=== PATIENT | male | born 1995 | race Caucasian/White ===

== ENCOUNTER 2018-04-18 18:30 | Emergency (ER) | payer MEDICAID, SELFPAY ==
[2018-04-18 18:42] VITALS: BP 157/97; PULSE 96; RESP 16; TEMP 37.5; O2SAT 99
[2018-04-18] MEDS: Albuterol HFA 8 GM 60 PUFF INH IH (20:08)
[2018-04-18] MEDS: Inhaler, Assist Device 1 EACH MC (20:09)
--- NOTE | 2018-04-18 20:22 | W.ED.GENAD ---
Discharge Plan Disposition Patient Disposition: HOME Condition: Stable Discharge Details Chief Complaint: GenMedical Clinical Impression: Infection, respiratory tract Primary Care Provider: Emanuel Reyes ED Provider: Dejuan Ferrell Home Meds and New Rx's Prescriptions: New benzonatate 200 mg capsule 200 mg PO TID PRN (Reason: cough) Qty: 30 RF: 0 Discharge Instructions Instructions: Acute Bronchitis (ED), Cold Symptoms (ED) Additional Instructions: Take medication as prescribed and if not improving over the next week please follow-up with your primary care provider for reassessment. Please return to the emergency department for any significant new or worsening symptoms. Please use provided inhaler 1-2 puffs every 4 hours as needed for chest tightness Referrals: Emanuel Reyes MD [Primary Care Provider] - (As needed for reassessment) Discharge Data Discharge Date/Time-TO BE ENTERED AT DEPARTURE: 04/18/18 21:15 Medical Decision Making Patient presenting the emergency department for chief complaint of sore throat, cough, nasal congestion for the past 4 weeks. Patient states that this is just not gotten any better and that he has had intermittent fever and chills with it. Physical exam shows clear lung barrios, tonsillary erythema with exudates and slight hypertrophy, some anterior cervical lymphadenopathy otherwise unremarkable exam. Patient does state some call sensation of tightness in his throat but also notes that occasionally when he is laughing he starts having coughing episodes and some shortness of breath. Patient denies any continuous cigarette smoking states he may smoke 1 pack a year but occasionally does marijuana more often. 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 Given tonsillary swelling lymphadenopathy hypertrophy and exudates do plan on doing rapid strep test given patient stating his biggest concern is his throat more than his cough but also consideration is post viral symptoms, bronchitis, atypical respiratory infection. Pending rapid strep test patient was given albuterol inhaler to see if that helps. Rapid strep test was negative. Patient reassessed after inhaler use and shows more movement through lung barrios and patient stating that this seemed to improve symptoms. I feel the patient has viral illness and possible secondary cough variant asthma. Patient was encouraged to use inhaler as needed and was prescribed Tessalon Perles otherwise informed that he should follow-up with his primary care provider for reassessment and further workup if he does not improve as I would lean more towards asthma as diagnosis. HPI General Mode of arrival: ambulatory. Date/Time Provider Initiated Documentation: 04/18/18 19:13. Limitations to Documentation: no limitations. Information obtained by: patient and RN notes reviewed. History of Present Illness 23 year old M presents to the emergency department with the chief complaint of cough, cold symptoms, described as moderate, with intensity rated at 6. Quality is described as aching, and is localized to the neck (Sore throat). Patient started experiencing this week(s) (4) and it has been constant. No relieving factors improve symptom(s), No exacerbating factors reported . Patient notes no other symptoms.. Patient did receive the following treatments prior to arrival, none Related Data Home Medications Medication Instructions Recorded Confirmed benzonatate 200 mg PO TID PRN #30 cap 04/18/18 Previous Rx's Medication Instructions Recorded benzonatate 200 mg PO TID PRN #30 cap 04/18/18 Allergies Allergy/AdvReac Type Severity Reaction Status Date / Time iodine Allergy Severe Anaphylaxsi Unverified 04/18/18 18:50 s shellfish derived Allergy Severe Anaphylaxsi Unverified 04/18/18 18:50 s Penicillins Allergy Mild Unverified 04/18/18 18:50 General Stated Complaint: GenMedical JILL: 4 Review of Systems Constitutional Reports chills, Reports difficulty sleeping (Due to coughing), Reports fatigue, Denies fever(s), Denies headache(s) and Reports malaise ENT Reports otalgia, Denies headache(s), Reports hoarseness, Reports nasal congestion, Denies nasal discharge, Reports sore throat and Denies throat swelling Cardiovascular Denies dyspnea Respiratory Reports change in phlegm color, Reports chest congestion, Reports cough and Denies dyspnea Gastrointestinal Denies abdominal pain Musculoskeletal Denies joint swelling Integumentary/Breasts Denies rash Neurologic Denies headache(s) Endocrine Reports fatigue Hematologic/Lymphatic Reports lymphadenopathy Allergic/Immunologic Denies throat swelling [facility] Social History Smoking/Tobacco Use Status: Never Exam Const General: cooperative, comfortable and no acute distress Orientation: alert, awake and oriented x3 HENMT Head: normal to inspection and normocephalic Ears: hearing grossly normal bilaterally, external ears normal and TM's normal bilaterally General nose exam: external nose normal and nares normal Face and sinus: normal facial exam and sinuses nontender Mouth: oral mucosae normal, lip normal and tongue normal Throat: uvula midline, abnormal tonsil bilaterally erythema (mild), exudates and hypertrophy 2+ and posterior oropharynx abnormal erythema Eyes General: appearance normal, both eyes and all related structures Conjunctivae: conjunctivae normal Sclera: sclerae normal Neck Neck: normal visual inspection, full ROM, meningismus present, lymphadenopathy (Anterior cervical) and no JVD Resp Effort & Inspection: normal respiratory effort, able to speak in complete sentences, no audible wheezes and not labored Auscultation: clear to auscultation bilaterally Cardio Rate: regular rate Rhythm: regular rhythm Heart Sounds: S1 normal and S2 normal Skin General skin exam: no rashes or lesions noted and dry skin Rashes: no rashes Neuro General: alert, awake, oriented x3 and gait normal Course Vital Signs Temperature 37.5 C 04/18/18 18:42 Pulse 96 H 04/18/18 18:42 Respiratory Rate 16 04/18/18 18:42 Blood Pressure 157/97 H 04/18/18 18:42 Pulse Oximetry 99 04/18/18 18:42 Temperature 37.5 C 04/18/18 18:42 Temperature Source Skin 04/18/18 18:42 Pulse 96 H 04/18/18 18:42 Respiratory Rate 16 04/18/18 18:42 Respiratory Effort 04/18/18 18:50 Blood Pressure 157/97 H 04/18/18 18:42 Blood Pressure Position Sitting 04/18/18 18:42 Pulse Oximetry 99 04/18/18 18:42 Oxygen Delivery Method Room Air 04/18/18 18:42 Oxygen Flow Rate 0 04/18/18 18:42 Pain Level 0 04/18/18 18:42 Lab/Test Results Lab/Test Results: POC Strep Test-LIDYA(Rapid) Start: 04/18/18 19:37 Freq: .Rapid Strep Test Status: Active Protocol: Document 04/18/18 20:10 (Rec: 04/18/18 20:10 [id number]) Strep test-LIDYA(Rapid)-POC POC-Strep test-LIDYA (Rapid) Negative POC-Strep test-LIDYA (Rapid) Negative
--- NOTE | 2018-04-18 20:25 | ED.GENADUL_ITS ---
Discharge Plan Disposition Patient Disposition: HOME Condition: Stable Discharge Details Chief Complaint: GenMedical Clinical Impression: Infection, respiratory tract Primary Care Provider: Emanuel Reyes ED Provider: Dejuan Ferrell Home Meds and New Rx's Prescriptions: New benzonatate 200 mg capsule 200 mg PO TID PRN (Reason: cough) Qty: 30 RF: 0 Discharge Instructions Instructions: Acute Bronchitis (ED), Cold Symptoms (ED) Additional Instructions: Take medication as prescribed and if not improving over the next week please follow-up with your primary care provider for reassessment. Please return to the emergency department for any significant new or worsening symptoms. Please use provided inhaler 1-2 puffs every 4 hours as needed for chest tightness Referrals: Emanuel Reyes MD [Primary Care Provider] - (As needed for reassessment) Discharge Data Discharge Date/Time-TO BE ENTERED AT DEPARTURE: 04/18/18 21:15 Medical Decision Making Patient presenting the emergency department for chief complaint of sore throat, cough, nasal congestion for the past 4 weeks. Patient states that this is just not gotten any better and that he has had intermittent fever and chills with it. Physical exam shows clear lung barrios, tonsillary erythema with exudates and slight hypertrophy, some anterior cervical lymphadenopathy otherwise unremarkable exam. Patient does state some call sensation of tightness in his throat but also notes that occasionally when he is laughing he starts having c oughing episodes and some shortness of breath. Patient denies any continuous cigarette smoking states he may smoke 1 pack a year but occasionally does marijuana more often. 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 Given tonsillary swelling lymphadenopathy hypertrophy and exudates do plan on doing rapid strep test given patient stating his biggest concern is his throat more than his cough but also consideration is post viral symptoms, bronchitis, atypical respiratory infection. Pending rapid strep test patient was given albuterol inhaler to see if that helps. Rapid strep test was negative. Patient reassessed after inhaler use and shows more movement through lung barrios and patient stating that this seemed to improve symptoms. I feel the patient has viral illness and possible secondary cough variant asthma. Patient was encouraged to use inhaler as needed and was prescribed Tessalon Perles otherwise informed that he should follow-up with his primary care provider for reassessment and further workup if he does not improve as I would lean more towards asthma as diagnosis. HPI General Mode of arrival: ambulatory . Date/Time Provider Initiated Documentation: 04/18/18 19:13 . Limitations to Documentation: no limitations . Information obtained by: patient and RN notes reviewed . History of Present Illness 23 year old M presents to the emergency department with the chief complaint of cough, cold symptoms, described as moderate, with intensity rated at 6. Quality is described as aching, and is localized to the neck (Sore throat). Patient started experiencing this week(s) (4) and it has been constant. No relieving factors improve symptom(s), No exacerbating factors reported . Patient notes no other symptoms.. Patient did receive the following treatments prior to arrival, none Related Data Home Medications Medication Instructions Recorded Confirmed benzonatate 200 mg PO TID PRN #30 cap 04/18/18 Previous Rx's Medication Instructions Recorded benzonatate 200 mg PO TID PRN #30 cap 04/18/18 Allergies Allergy/AdvReac Type Severity Reaction Status Date / Time iodine Allergy Severe Anaphylaxsi Unverified 04/18/18 18:50 s shellfish derived Allergy Severe Anaphylaxsi Unverified 04/18/18 18:50 s Penicillins Allergy Mild Unverified 04/18/18 18:50 General Stated Complaint: GenMedical JILL: 4 Review of Systems Constitutional Reports chills, Reports difficulty sleeping (Due to coughing), Reports fatigue, Denies fever(s), Denies headache(s) and Reports malaise ENT Reports otalgia, Denies headache(s), Reports hoarseness, Reports nasal congestion, Denies nasal discharge, Reports sore throat and Denies throat swelling Cardiovascular Denies dyspnea Respiratory Reports change in phlegm color, Reports chest congestion, Reports cough and Denies dyspnea Gastrointestinal Denies abdominal pain Musculoskeletal Denies joint swelling Integumentary/Breasts Denies rash Neurologic Denies headache(s) Endocrine Reports fatigue Hematologic/Lymphatic Reports lymphadenopathy Allergic/Immunologic Denies throat swelling [facility] Social History Smoking/Tobacco Use Status: Never Exam Const General: cooperative, comfortable and no acute distress Orientation: alert, awake and oriented x3 HENMT Head: normal to inspection and normocephalic Ears: hearing grossly normal bilaterally, external ears normal and TM's normal bilaterally General nose exam: external nose normal and nares normal Face and sinus: normal facial exam and sinuses nontender Mouth: oral mucosae normal, lip normal and tongue normal Throat: uvula midline, abnormal tonsil bilaterally erythema (mild), exudates and hypertrophy 2+ and posterior oropharynx abnormal erythema Eyes General: appearance normal, both eyes and all related structures Conjunctivae: conjunctivae normal Sclera: sclerae normal Neck Neck: normal visual inspection, full ROM, meningismus present, lymphadenopathy (Anterior cervical) and no JVD Resp Effort & Inspection: normal respiratory effort, able to speak in complete sentences, no audible wheezes and not labored Auscultation: clear to auscultation bilaterally Cardio Rate: regular rate Rhythm: regular rhythm Heart Sounds: S1 normal and S2 normal Skin General skin exam: no rashes or lesions noted and dry skin Rashes: no rashes Neuro General: alert, awake, oriented x3 and gait normal Course Vital Signs Temperature 37.5 C 04/18/18 18:42 Pulse 96 H 04/18/18 18:42 Respiratory Rate 16 04/18/18 18:42 Blood Pressure 157/97 H 04/18/18 18:42 Pulse Oximetry 99 04/18/18 18:42 Temperature 37.5 C 04/18/18 18:42 Temperature Source Skin 04/18/18 18:42 Pulse 96 H 04/18/18 18:42 Respiratory Rate 16 04/18/18 18:42 Respiratory Effort 04/18/18 18:50 Blood Pressure 157/97 H 04/18/18 18:42 Blood Pressure Position Sitting 04/18/18 18:42 Pulse Oximetry 99 04/18/18 18:42 Oxygen Delivery Method Room Air 04/18/18 18:42 Oxygen Flow Rate 0 04/18/18 18:42 Pain Level 0 04/18/18 18:42 Lab/Test Results Lab/Test Results: POC Strep Test-LIDYA(Rapid) Start: 04/18/18 19:37 Freq: .Rapid Strep Test Status: Active Protocol: Document 04/18/18 20:10 (Rec: 04/18/18 20:10 [id number]) Strep test-LIDYA(Rapid)-POC POC-Strep test-LIDYA (Rapid) Negative POC-Strep test-LIDYA (Rapid) Negative
[2018-04-18] MEDS: Azithromycin 250 MG TAB 500 MG PO (21:10)
[2018-04-18 21:11] VITALS: BP 131/87; PULSE 63; RESP 16; TEMP 37.6; O2SAT 100
== END 2018-04-18 21:15 | disposition home or self-care (01) ==
PROVIDERS: Emergency Provider Nurse Practitioner Family; PCP General Practice
DX: J22 Unspecified acute lower respiratory infection (principal)
CPT/HCPCS: 87880; 99283

== ENCOUNTER 2019-03-18 11:01 | Outpatient (CLI) | payer BC, MEDICAID, SELFPAY ==
--- NOTE | 2019-03-18 13:37 | DI.RAD_ITS ---
EXAM: XR HAND RT COMPLETE CLINICAL HISTORY: HISTORY OF HAND FRACTURE, Z87.81 TECHNIQUE: COMPARISON: No exams were available for comparison FINDINGS: Three views were obtained. No bony or soft tissue abnormality seen. IMPRESSION:
== END 2019-03-18 11:21 ==
PROVIDERS: PCP General Practice
DX: M79.641 Pain in right hand (principal); Z87.81 Personal history of (healed) traumatic fracture
CPT/HCPCS: 73130

== ENCOUNTER 2019-04-17 16:14 | Emergency (ER) | payer BC, MEDICAID, SELFPAY ==
[2019-04-17 16:26] VITALS: BP 140/89; PULSE 89; RESP 16; TEMP 36.7; O2SAT 99
--- NOTE | 2019-04-17 18:10 | ED.GENADUL_ITS ---
Discharge Plan Disposition Patient Disposition: HOME Condition: Good Discharge Details Chief Complaint: Sorethroat Clinical Impression: Acute viral pharyngitis Primary Care Provider: Emanuel Reyes ED Provider: Janice Balbuena Home Meds and New Rx's Prescriptions: No Action No Known Home Meds RF: 0 Discharge Instructions Instructions: Pharyngitis (ED), Laryngitis (ED) Additional Instructions: Drink plenty of fluids. Voice rest. Try to avoid whispering as discussed. Warm salt water gargles. Tylenol or Advil [id number]. If using Advil please have food in your stomach before taking medication. Consider Cepacol lozenge [id number] for comfort. Humidifier by the bedside. Increase vitamin C. Rest activities as tolerated. If not improving in the next 3 to 5 days consider reevaluation with primary care doctor. Return for any alarming symptoms, worsening, high fevers, difficulty breathing, signs of dehydration or alarming symptom sooner if needed. Throat culture pending. We will call for any positive results Stand Alone Forms: Work Release Discharge Data Discharge Date/Time-TO BE ENTERED AT DEPARTURE: 04/17/19 18:30 Medical Decision Making Is a 24-year-old patient who presents to the emergency room this evening for complaints of 1 day of sore throat. Patient reports sore throat initially then mildly improved then today sore throat returned with associated laryngitis. Patient denies associated trismus. Patient is well-appearing. Vital signs normal. Patient denies associated respiratory difficulty, cough, difficulty breathing or wheezing. Patient reports mild queasiness/nausea yesterday which is since resolved. Denies abdominal pain. Denies urinary changes or bowel changes. Denies flulike symptoms or body ache. Patient had [id number] testing for strep which was negative. Full throat culture pending. Patient has been eating and drinking without difficulty, feels well hydrated. Patient has mild pharyngeal erythema on exam. Mild anterior cervical lymphadenopathy. No abdominal pain, clear breath sounds. Patient is well-appearing in general. I feel likely this patient is experiencing viral illness. Full throat culture pending. Conservative treatments discussed. Patient agrees with plan of care. Will provide work note as patient is due to work next week and if not feeling improved. Patient reports his understanding. Alarming signs and symptoms discussed for which patient should have return if needed. The patient was stable and requested discharge. Prior to discharge, my usual and customary return precautions were reviewed with the patient - this included follow-up instructions and reasons to return to the Emergency Department if conditions worsens, does not improve as expected, or other new concerns arise. HPI General Date/Time Provider Initiated Documentation: 04/17/19 18:07 . HPI Narrative: This is a 24-year-old patient who presents for complaints of sore throat which began yesterday. Patient reports sore throat somewhat improved this morning then returned in the afternoon now associated with laryngitis. Patient denies significant nasal secretions or sinus pain. Denies headache or dizziness. Reji es measured fever, chills, body aches. Patient does report mild upset stomach yesterday but since improved. No abdominal pain. Denies any bowel changes or diarrhea. Patient denies any cough, difficulty breathing with shortness of breath or wheezing. Patient concerned the possibility of strep due to sore throat and laryngitis. Patient denies any associated trismus. Has been eating and drinking without difficulty. No other concerns or complaints at this time Related Data Home Medications Medication Instructions Recorded Confirmed Unknown [No Known Home Meds] 04/17/19 04/17/19 Allergies Allergy/AdvReac Type Severity Reaction Status Date / Time iodine Allergy Severe Anaphylaxsi Unverified 04/17/19 16:30 s shellfish derived Allergy Severe Anaphylaxsi Unverified 04/17/19 16:30 s Penicillins Allergy Mild Unverified 04/17/19 16:30 General Stated Complaint: Sorethroat JILL: 4 Review of Systems All systems reviewed & are unremarkable except as noted in HPI and below Constitutional Constitutional: Denies chills, Denies fatigue, Denies fever(s), Denies headache(s) and Denies malaise ENT Ears, Nose, Mouth, and Throat: Denies otalgia, Denies headache(s), Reports hoarseness, Denies neck pain, Denies sinus pain, Denies sinus pressure and Reports sore throat Cardiovascular Cardiovascular: Denies dyspnea Respiratory Respiratory: Denies cough, Denies pain with cough, Denies dyspnea and Denies wheezing Gastrointestinal Gastrointestinal: Denies abdominal pain, Denies diarrhea, Denies nausea and Denies vomiting Musculoskeletal Musculoskeletal: Denies neck pain Neurologic Neurologic: Denies headache(s) Endocrine Endocrine: Denies fatigue Allergic/Immunologic Allergic/Immunologic: Denies wheezing [facility] Social History Smoking/Tobacco Use Status: Current-Occasional Drug use: Occasionally Substance use type: marijuana Do you feel safe in your relationship?: Yes Exam Narrative Exam Narrative: CONST: Healthy appearing patient, in no acute distress. Well hydrated. Alert and alert. HENMT: Head nomocephalic, normal to inspection. Atraumatic. Hearing grossly normal. TMs appear normal bilaterally. Mild pharyngeal erythema without exudate or tonsillar swelling. Uvula is midline and normal appearing. EYES: General normal appearance. Alignment normal. Eyelids normal. Conjunctiva normal. NECK: Normal visual inspection. FROM. Trachea midline. No Midline tenderness. Mild anterior cervical lymphadenopathy present. No posterior cervical lymphadenopathy present CHEST: Normal insepection of the chest. RESP: Normal respiratory effort. Speaking full sentences. No cough. No audible wheezing. No retractions. Breath sounds are clear and equal bilaterally. No wheezing, rhonchi or rales CARDIO: No JVD. No murmurs. Regular rate and rhythm PSYCH: Normal affect. Cooperative. Course Vital Signs Vital signs: Vital Signs Temperature 36.7 C 04/17/19 16:26 Pulse 89 04/17/19 16:26 Respiratory Rate 16 04/17/19 16:26 Blood Pressure 140/89 04/17/19 16:26 Pulse Oximetry 99 04/17/19 16:26 Temperature 36.7 C 04/17/19 16:26 Temperature Source Skin 04/17/19 16:26 Pulse 89 04/17/19 16:26 Respiratory Rate 16 04/17/19 16:26 Respiratory Effort Non-Labored 04/17/19 16:26 Blood Pressure 140/89 04/17/19 16:26 Blood Pressure Position Sitting 04/17/19 16:26 Pulse Oximetry 99 04/17/19 16:26 Oxygen Delivery Method Room Air 04/17/19 16:26 Oxygen Flow Rate 0 04/17/19 16:26 Pain Level 2 04/17/19 16:26 Lab/Test Results Lab/Test Results: 04/17/19 16:25 Pharynx Streptococcus Screen ([facility]) - Pending POC Strep Test-LIDYA(Rapid) Start: 04/17/19 16:34 Freq: .Rapid Strep Test Status: Active Protocol: Document 04/17/19 16:34 MMQ (Rec: 04/17/19 16:34 MMQ [id number]) Strep test-LIDYA(Rapid)-POC POC-Strep test-LIDYA (Rapid) Negative POC-Strep test-LIDYA (Rapid) Negative
== END 2019-04-17 18:30 | disposition home or self-care (01) ==
PROVIDERS: Emergency Provider Physician Assistant; PCP General Practice
DX: J02.8 Acute pharyngitis due to other specified organisms (principal)
CPT/HCPCS: 87880; 99283; 87081; 99282

== ENCOUNTER 2021-02-23 11:52 | Emergency (ER) | payer MEDICAID, SELFPAY ==
[2021-02-23 12:04] VITALS: BP 157/93; PULSE 96; RESP 16; TEMP 37.4; O2SAT 100
--- NOTE | 2021-02-23 12:21 | W.ED.GENAD ---
Discharge Plan Disposition Patient Disposition: HOME Condition: Stable Discharge Details Chief Complaint: Orthopedic Clinical Impression: Left knee sprain Primary Care Provider: Justine Piper ED Provider: Diego Canela Home Meds and New Rx's Prescriptions: No Action No Known Home Meds RF: 0 Discharge Instructions Instructions: Knee Sprain (ED) Additional Instructions: based on your exam you are unlikely to have a broken bone follow up with your provider in [place] if you feel more ill or have new pain such as chest pain or abdominal pain return to the emergency department you can take 1000mg tylenol and 600mg ibuprofen every 6 hours for pain as needed Medical Decision Making 26 yo male with no chronic medical problems comes in with cc of left knee pain. He states he injured it months ago and has been doing PT in [place] where he lives (visiting family that lives in [facility]). He was skateboarding a few days ago and he twisted the left knee, denies falls or other trauma. Has had pain since so came here. The pain is in the anterior lateral knee. He is walking with normal gait, full range of motion of the knee and normal distal pulses and sensation. He has mild anterior knee swelling and no warmth or erythema, no crepitus, no laxity on exam. Suspect sprain and less likely meniscus or ligament injury. Offered an xray but given he can bear weight and has full rom and did not fall unlikely fracture and he declined an xray which I feel is reasonable. Hinged knee brace given and will f/u with his providers in [place] Differential Diagnosis Differential Diagnosis: sprain, meniscus injury, ligamentous injury HPI General Mode of arrival: ambulatory. Date/Time Provider Initiated Documentation: 02/23/21 11:56. Limitations to Documentation: no limitations. Information obtained by: patient. History of Present Illness 26 year old M presents to the emergency department with the chief complaint of left knee pain, described as moderate, Quality is described as aching, and is localized to the lower extremity. Patient reports no radiation. Patient started experiencing this day(s) (2) and it has been constant. Rest improves symptom(s), Movement worsens symptoms . Patient notes no other symptoms.. Patient did receive the following treatments prior to arrival, none Related Data Home Medications Medication Instructions Recorded Confirmed Unknown [No Known Home Meds] 04/17/19 02/23/21 Allergies Allergy/AdvReac Type Severity Reaction Status Date / Time iodine Allergy Severe Anaphylaxsi Unverified 02/23/21 12:07 s shellfish derived Allergy Severe Anaphylaxsi Unverified 02/23/21 12:07 s Penicillins Allergy Mild Unverified 02/23/21 12:07 General Stated Complaint: Orthopedic JILL: 4 Review of Systems All systems reviewed & are unremarkable except as noted in HPI and below Constitutional Constitutional: Denies chills, Denies fever(s) and Denies weakness Cardiovascular Cardiovascular: Denies chest pain and Denies dyspnea Respiratory Respiratory: Denies cough and Denies dyspnea Gastrointestinal Gastrointestinal: Denies abdominal pain, Denies nausea and Denies vomiting Neurologic Neurologic: Denies weakness [facility] Social History Smoking/Tobacco Use Status: Current-Occasional Tobacco Type: cigarettes Smoking risk assessment performed?: Yes Alcohol Intake: current Alcohol Intake frequency: holidays/special occasions only Drug use: Occasionally Substance use type: marijuana Do you feel safe at home: Yes Do you feel safe in your relationship?: Yes Exam Const General: no acute distress Orientation: alert HENMT Head: normal to inspection Ears: external ears normal General nose exam: external nose normal Mouth: moist mucous membranes Eyes General: appearance normal, both eyes and all related structures Neck Neck: normal visual inspection Resp Effort & Inspection: normal respiratory effort and able to speak in complete sentences Cardio Rate: regular rate Skin General skin exam: no rashes or lesions noted Neuro General: patient alert and patient oriented x3 Extrem General: capillary refill normal Psych Mental Status: mental status grossly normal Course Vital Signs Vital signs: Vital Signs Temperature 37.4 C 02/23/21 12:04 Pulse 96 H 02/23/21 12:04 Respiratory Rate 16 02/23/21 12:04 Blood Pressure 157/93 H 02/23/21 12:04 Pulse Oximetry 100 02/23/21 12:04 Temperature 37.4 C 02/23/21 12:04 Temperature Source Temporal Artery Scan 02/23/21 12:04 Pulse 96 H 02/23/21 12:04 Respiratory Rate 16 02/23/21 12:04 Respiratory Effort Non-Labored 02/23/21 12:13 Blood Pressure 157/93 H 02/23/21 12:04 Blood Pressure Position Sitting 02/23/21 12:04 Pulse Oximetry 100 02/23/21 12:04 Oxygen Delivery Method Room Air 02/23/21 12:04 Oxygen Flow Rate 0 02/23/21 12:04
== END 2021-02-23 12:33 | disposition home or self-care (01) ==
PROVIDERS: Emergency Provider Emergency Medicine
DX: S83.8X2A Sprain of other specified parts of left knee, initial encounter (principal); X50.9XXA Other and unspecified overexertion or strenuous movements or postures, initial encounter; Y93.51 Activity, roller skating (inline) and skateboarding
CPT/HCPCS: 29505; 99283

== ENCOUNTER 2021-06-04 01:01 | Outpatient (CLI) | payer MEDICAID, SELFPAY ==
[2021-06-04 13:13] LABS: COVID-19 PCR Negative (Negative)
[2021-06-04 14:08] LABS: Source Nasal/Nares
== END 2021-06-04 01:02 | disposition home or self-care (01) ==
LOC: LBO 01:01
PROVIDERS: Visit Provider Student in an Organized Health Care Education/Training Program
DX: Z20.822 Contact with and (suspected) exposure to COVID-19 (principal); Z01.818 Encounter for other preprocedural examination
CPT/HCPCS: 87635

== ENCOUNTER 2021-06-06 09:26 | Day surgery (SDC) | payer MEDICAID, SELFPAY ==
[2021-06-06] VITALS (10 sets, daily range): BP systolic 92–142; BP diastolic 48–104; PULSE 64–89; RESP 12–16; TEMP 36.2–37.1; O2SAT 96–99; BMI 32.6
[2021-06-06] MEDS: Lactated Ringers 1,000 ML 100 ML IV (10:28)
--- NOTE | 2021-06-06 11:08 | W.ANESPRE ---
General Info Date of Service Date Performed: 06/06/21 Height: 5 ft 10 in Weight: 103.3 kg Body Mass Index (BMI): 32.6 Surgical Procedure: Operation Date: 06/06/21 12:10 Proposed Procedure Side Surgeon p Knee ACL Reconstruction(allograft) any indicated meniscal, chondral or synovial surgery Left Rajendra Branch MD Meds Allergies and Home Medications Allergies Allergy/AdvReac Type Severity Reaction Status Date / Time iodine Allergy Severe Anaphylaxsi Unverified 06/06/21 09:41 s shellfish derived Allergy Severe Anaphylaxsi Unverified 06/06/21 09:41 s Penicillins Allergy Mild Other (See Unverified 06/06/21 09:41 Comment) Home Medication Medication Instructions Recorded Unknown [No Known Home Meds] 04/17/19 Current Visit Medications: Current Medications Generic Name Dose Route Start Last Admin Trade Name Freq PRN Reason Stop Dose Admin Ringer's Solution 1,000 mls @ 100 mls/hr 06/06/21 06:00 06/06/21 10:28 IV 07/05/21 23:59 100 mls/hr INFUSION SERENA Administration Cefazolin Sodium/Dextrose 2 gm in 50 mls @ 100 mls/hr 06/06/21 06:00 Ancef Duplex IVPB 06/06/21 16:00 PREOP SERENA IV Miscellaneous Supplies 1 each 06/06/21 06:00 Iv Access IV 07/05/21 23:59 DIRECTED SERENA Naproxen 250 - 500 mg 06/06/21 10:45 Naproxen 500 Mg Tab PO BID PRN PRN Oxycodone HCl 5 - 10 mg 06/06/21 10:45 Oxycodone 5 Mg Tab PO Q4H PRN PRN Sodium Chloride 0 ml 06/06/21 06:00 Normal Saline Flush 10 Ml Syr IV 07/05/21 23:59 PRN PRN Sodium Chloride 0 ml 06/06/21 06:00 Normal Saline 10 Ml Vial IJ 07/05/21 23:59 DIRECTED PRN Sterile Water 0 ml 06/06/21 06:00 Water,Injection,Sterile 10 Ml Vial IJ 07/05/21 23:59 DIRECTED PRN PFSH Active Problems Active Problems: Problem Status Onset Code GERD (gastroesophageal reflux disease) K21.9 Left ACL tear ~06/2020 S83.512A Medical History Medical History Comments:: pt had many fractures but no metal in body, water only this morning no olid food since last night Surgical History Surgical History Hx of wisdom tooth extraction Tobacco Smoking/Tobacco Use Status: Former Tobacco Use Alcohol Alcohol Intake: current Alcohol intake frequency: a few times a week Alcohol type: beer, wine and hard liquor Substance Use Substance use: Daily Substance use type: marijuana Details: las alcohol and marijuana use 4 days ago Vital Signs and Lab Results Vital Signs Most Recent Vital Signs in EMR: Most Recent Vital Signs Temp Pulse Resp BP Pulse Ox 37.1 C 87 16 142/104 H 99 06/06/21 09:43 06/06/21 09:43 06/06/21 09:43 06/06/21 09:43 06/06/21 09:43 Lab Results Blood Type / Crossmatch: No Data to Display Complete Blood Count: No Data to Display Complete Metabolic Panel: No Data to Display Liver Function Panel: No Data to Display Coagulation Panel: No Data to Display Cardiac Panel: No Data to Display Arterial Blood Gas: No Data to Display Venous Blood Gas: No Data to Display Pancreas Panel: No Data to Display Thyroid Panel: No Data to Display Infectious Disease: Coronavirus (COVID-19)(PCR) Negative (Negative) 06/04/21 09:27 06/04/21 Coronavirus 2019 Source Nasal/Nares 06/04/21 09:27 06/04/21 Blood Cultures: No Data to Display Toxicology Panel: No Data to Display Anesthesia Assessment and Plan Anesthesia History Personal History: No History of General Anesthesia Family History: No Family History of Anesthesia Complications Exercise Tolerance Exercise Tolerance: Metabolic Equivalents>4 Pertinent Negatives Pertinent Negatives: No Symptoms of GERD, No Major Cardiovascular Symptoms or Complaints, No Major Pulmonary Symptoms or Complaints and No History of CVA/TIA Cardiac & Pulmonary Exam Cardiac Exam: Normal S1/S2 Heart Sounds Pulmonary Exam: Clear Bilateral Breath Sounds Implantable Cardiac Device Does patient have a Pacemaker or an ICD?: No Airway Exam Known Difficult Airway: No Mallampati Class: 2 Mouth Opening: Normal (> 3cm) Thyromental Distance: Greater than 3 cm Neck Range of Motion: Full ROM Neck Circumference: Normal Teeth Condition: Normal Dentition ASA Classification ASA Score: ASA 2 Emergency Case?: No NPO Status NPO Status: NPO Clears >2 hours, Solids >8 hours Anesthesia Plan Resuscitation Status: Full Code Anesthesia Technique: General Anesthesia Airway Planned: LMA Pain Management: Surgeon and patient request nerve block Monitors Used: Standard Monitors
[2021-06-06] MEDS: ceFAZolin 2 GM/50 ML BAG IVPB (12:21)
--- NOTE | 2021-06-06 12:43 | W.ANESNERVE ---
Nerve Block Single Injection Procedure Date and Time Date Performed: 06/06/21 Procedure Start: 11:53 Location Where Procedure Performed Procedure Location: Day Surgery Unit Reason Performed: Postoperative Analgesia Requesting Provider: Rajendra Branch Timeout Performed Timeout Performed: Yes Monitoring Used ECG, Blood Pressure, SpO2 and See EMR for corresponding vital signs Sterility Sterility: Hand Hygiene, Surgical Cap, Surgical Mask, Sterile Gloves and Chlorhexidine Sedation Given During Procedure Sedation Given (Indicate Dose Given): Versed IV Dose:: 2 mg Patient Mental Status Patient Mental Status: Awake Nerve Block 1st Nerve Block: Laterality: Left Block Type: Femoral Needle / Catheter Used: 100mm SonoPlex II Local Anesthetic Bolus (Indicate Dose Given): Lidocaine used for local infiltration of skin, Injected in 3-5ml increments after negative blood aspiration, Bupivacaine 0.25% Dose:: 10 ml and Exparel Dose:: 10 ml Additives (Indicate Dose Given): None Ultrasound: Sterile probe cover and gel used Ultrasound Image Saved?: Yes Nerve Stimulator: Not Used Paresthesia: None Procedure Tolerated: No Complications and Patient tolerated well Procedure Outcome: Successful Performed By: Trina Miles
[2021-06-06] MEDS: Bupivacaine 0.25% Pres-Free 10 ML VIAL (13:29)
--- NOTE | 2021-06-06 14:00 | W.PM.OP ---
Operative Note Operative Note DATE OF PROCEDURE: 06/06/21 PRE-OP DIAGNOSIS: Right knee: 1. ACL rupture 2. Medial meniscus tear 3. Lateral meniscus tear Right knee: 1. ACL rupture 2. Medial meniscus tear 3. Lateral meniscus tear 4. Intra-articular loose bodies PROCEDURE: Right knee: 1. Allograft ACL reconstruction, CPT #88553 2. Partial lateral meniscectomy, CPT #58210 3. Loose body removal, CPT #33423 SURGEON: Rajendra Branch ANESTHESIA TYPE: Local By Surgeon, General LMA/ETT and Primary Nerve Block Refer to Anesthesia Record TOURNIQUET TIME: 0 COMPLICATIONS: None Patient was transported to: PACU Patient's condition: stable Implants: Arthrex ACL TightRope II RT and ABS with 14mm round cortical button Presutured quadriceps 10 x 70 mm allograft Indications: Please see complete medical record for details. Findings: Full knee range of motion. Positive Ronny. Positive pivot shift. Multiple meniscal loose body suprapatellar pouch small and easily removed shaver. Large loose body in the medial gutter chronic ovoid about 10 x 15 mm. Posterior horn lateral meniscus was somewhat diminutive possibly donor for the loose bodies. No obvious cartilage defects. Chronic scarring posterior horn lateral meniscus probably a partial root tear with now stable with partial disruption of the meniscal tibial and possibly anterior PCL attachments stable posteriorly to capsule and PCL. Meniscus intact with what appeared to be a small well-healed undersurface tear in the body. Did not open on probing. No repair needed. Procedure Description: In the operating room, general anesthesia was induced. The patient was positioned supine on the operating room table. All bony prominences were well-padded. Preoperative antibiotics were administered. The right knee was prepped and draped in the usual sterile fashion. The correct patient, procedure, and side of the procedure were all verified prior to incision. Exam under anesthesia was performed. 20 cc 0.5 cm given epinephrine infiltrated about the planned anteromedial, anterolateral, lateral femoral, and pretibial surgery sites. The standard high and tight anterolateral anteromedial portals were established and a complete diagnostic arthroscopy was performed with relevant findings detailed above. There were multiple small loose bodies in the suprapatellar pouch easily removed with the mechanical shaver that appeared cartilaginous or meniscoid in origin. There was a large ovoid chronic loose body in the medial gutter. It was carefully directed into the intercondylar area where it could be grasped. The anteromedial portal was enlarged and arthropathy grasper used to secure this loose body and removed under direct visualization. Was placed in specimen cup to show the patient. In the intercondylar area, there is complete midsubstance disruption of the ACL. Somewhat confirming chronic nature of this injury, there was scarring high in the notch between some remnant tissue and the PCL. Similarly there was scarring of the stump between the tibial eminences and the PCL anteriorly. The lateral meniscus was probed and then debrided to a stable margin Imelda. As noted above it was stably attached more posteriorly capsule PCL with some remnant attachments to the tibia. It was not completely normally compressed to the posterior lateral tibial plateau, but was stable to its posterior and intercondylar attachments. Decision was made to omit any root repair especially considering the diminutive nature of the posterior horn which likely contributed to the previously mentioned loose body. An 8 x 3 passport was inserted in the anterolateral portal and 12 x 3 passport in the anteromedial portal. The mechanical shaver was used to remove the remnant ACL leaving but leave just enough footprint on the femur and tibia to localize tunnels. Only a small notchplasty was necessary to allow visualization of the back wall. On the back table, the allograft was prepared. The quadriceps presuture allograft was measured and sized about 10 x 70 mm. The open femoral button and ABS buttons were attached on the femoral and tibial sides with appropriate shuttling sutures The corners on the tibial side of the graft were both sized to facilitate passage. The graft was compressed in a 10 mm and then 9 mm graft tube and soaked with a vancomycin solution sponge. Attention was then turned to the ACL reconstruction. The 6 and 9 guide was used to target the appropriate location for anatomic placement of the ACL origin. A small incision was made at the lateral thigh for placement of the drill guide down to bone. The flip cutter was used targeting the appropriate location. The drill guide malleted 7 mm appropriately into the far cortex. The remainder of the handling guide was removed. The flip cutter was deployed to 10 mm and then retrograde reaming done for socket of 30 mm depth. A fiber stick was then used to find the entrance to the tunnel laterally and then securing shuttle suture through the anterior lateral portal. The tibial guide was then used in some remnant ACL at the tibial insertion was removed centrally to allow best placement for the guide. A pretibial incision was made in the drill guide placed on bone. The flip cutter was then used to drill drilled to the appropriate location. The drill guide malleted 7 mm into the cortex the remainder of the guide and handle removed. The flip cutter deployed to 10 mm and then in retrograde fashion a socket of 25 mm created. A fiber stick was used to place a passing suture here and secured anterior medially. The mechanical shaver was used to remove bone drilling debriding thoroughly as well as carefully chamfer and remove soft tissue from the edges of the sockets to allow for best graft passage. The prepared graft was then brought over to the knee. The femoral RT sutures were then shuttled through the anteromedial portal out the lateral thigh. The tight rope device had been lengthened to allow for camera placement in the anteromedial portal as well once the button was passed into the femoral tunnel. Under direct visualization the button was advanced to the end of the socket and then through the far cortex drill hole and carefully flipped on the far cortex. Back pressure on the graft confirmed appropriate cortical placement as well as toggling the passing and tightening sutures. The camera was brought back to the anterior lateral portal and the graft advanced into the knee through the anteromedial portal and then advanced 20 mm into the femoral socket. The ABS and fiber loop sutures were then shuttled through the anterior tunnel. The graft was assisted into the knee and into the tibial socket with the probe. The graft was dunked about 15 mm with manual pressure on the ABS loop. A larger 14 mm round button was selected and carefully loaded with the ABS sutures as well as the fiber loop stitches. The sutures were tightened bringing the button down to the anterior tibial cortex. Almost 20 mm was advanced into the tibia. The graft prep sutures were about flush with both the femoral and tibial sockets. Additional tightening was done on both the femoral and tibial sides. The knee was then cycled 22 times an additional tightening done on both the femoral and tibial sides. The graft tension and trajectory was confirmed and appropriate. There was no impingement or notching in full extension. The knee was brought into full extension of the table. The editorial assistant applied and maintained a moderate reverse Ronny. Final tightening was done on both ends of the graft with minimal additional advancing. Ronny exam was solidly stable. Passing sutures removed. The fiber loop sutures were tied as backup over femoral and tibial buttons and sutures cut. The knee was copiously irrigated and the mechanical shaver used to ensure no bone tunnel or debris remained in the knee. All portals and incisions were copiously irrigated. 3-0 Monocryl was used to close the portals and small incisions in a buried interrupted fashion. Mastisol Steri-Strips Xeroform and 4 x 4 gauze applied over the incisions. An additional 20 cc 1% lidocaine with epinephrine and 0.25% bupivacaine infiltrated about the incisions and portals. The knee was wrapped in sterile soft roll and the extremity gently in an Fredy bandage. The soft knee immobilizer placed. The patient awoke from anesthesia without complication and was transferred to the recovery room in a stable condition.
[2021-06-06] MEDS: EPINEPHrine 30 MG/30 ML VIAL (15:00)
--- NOTE | 2021-06-06 15:15 | PDOC.DSDIS_ITS ---
Discharge Plan Disposition Patient Disposition: HOME Condition: Stable Discharge Details Reason For Visit: Left knee surgery Attending Provider: Rajendra Branch Primary Care Provider: Justine Piper Home Meds and New Rx's Prescriptions: New naproxen 250 mg tablet 250 - 500 mg PO BID PRNQty: 40 0RF Rx Instructions: take with a meal aspirin 81 mg tablet,delayed release (DR/EC) 81 mg PO DAILY 14 Days Qty: 14 0RF oxycodone 5 mg tablet 5 - 10 mg PO Q4H MDD 30 mg PRN (Reason: moderate to severe pain) Qty: 18 0RF Discharge Instructions Additional Instructions: Surgery: Left knee arthroscopy with anterior cruciate ligament reconstruction (quadriceps allograft), partial lateral meniscectomy, and loose body removal Activity: Weight-bearing as tolerated. Advance range of motion as comfort allows. No crutches needed as soon as comfortable. Standard ACL rehab protocol. A physical therapy prescription will be sent electronically to start in 2 to 3 weeks. Prescriptions: Aspirin 81 mg take 1 daily to prevent a blood clot for 14 days Naproxen 250 mg take 1-2 every 12 hours with a meal as needed for moderate pain Oxycodone 5 mg take 1-2 every 4-6 hours as needed for severe pain You may use [id number] Tylenol (acetaminophen) as needed for mild pain. These pain medications may be taken all at once or in different combinations as needed. Also, recommend Colace (docusate) as a stool softener as surgery and pain medicine cause constipation. Dressings: Leave dressing in place for 3-5 days. May then remove and leave open to air or cover incisions with Band-Aids. May shower after 5 days. Follow-up: 10-14 days with an orthopedic physician visitor use assistant and 6-[address] Branch Let us know right away if you develop any redness, drainage, fevers, chest pain, or trouble breathing. Do not drink alcohol or drive for at least 24 hours after anesthesia. Please call the office during business hours with any questions or concerns. Referrals: Rajendra Branch MD [ [facility] STAFF PHYSICIAN] - Discharge Orders Discharge Orders: Discharge Order (Routine); Ordered 06/06/21 Ordered By: Rajendra Branch DS: Diagnosis Discharge Diagnosis (1) Left ACL tear: Status: Acute
--- NOTE | 2021-06-06 17:39 | W.ANESPOSTOP ---
Postoperative Evaluation Date, Time and Location Date Performed: 06/06/21 Time Performed: 16:50 Patient Location: Day Surgery Unit Vital Signs Most Recent Imported Vital Signs: Most Recent Vital Signs Temp Pulse Resp BP Pulse Ox 36.2 C L 70 16 135/86 99 06/06/21 16:46 06/06/21 16:46 06/06/21 16:46 06/06/21 16:46 06/06/21 16:46 Pain Score Most Recent Pain Score: Most Recent Pain Score Pain Level 2 06/06/21 16:46 Assessment Mental Status: Awake (Alert & Oriented to Patient Baseline) Airway and Respiratory Function: Patent airway with normal (patient baseline) respiratory exam Cardiovascular Function: Hemodynamically Stable Hydration Status: Adequately Hydrated Nausea & Vomiting: No Nausea or Vomiting Pain: Pain is tolerable per patient Peripheral Nerve Block: Regional nerve block not resolved at time of post operative discharge
== END 2021-06-06 17:30 | disposition home or self-care (01) ==
PROVIDERS: Visit Provider Student in an Organized Health Care Education/Training Program
PROC: (CPT 29888; principal; 2021-06-06 12:00)
DX: S83.512A Sprain of anterior cruciate ligament of left knee, initial encounter (principal); S83.281A Other tear of lateral meniscus, current injury, right knee, initial encounter; S83.241A Other tear of medial meniscus, current injury, right knee, initial encounter; M23.41 Loose body in knee, right knee; X58.XXXA Exposure to other specified factors, initial encounter; Y93.23 Activity, snow (alpine) (downhill) skiing, snowboarding, sledding, tobogganing and snow tubing; K21.9 Gastro-esophageal reflux disease without esophagitis
CPT/HCPCS: 29888; 29881; 76942; J0690; J2250; J2405; J2704; J3010

== ENCOUNTER 2023-10-26 17:48 | Outpatient (REF) | payer MEDICAID, SELFPAY ==
[2023-10-26 17:39] LABS: Abs Immature Grans 0.01 10^3/uL (0.0-0.06); Absolute Basophil Count 0.02 10^3/uL (0.0-0.2); Absolute Eosinophil Count 0.01 10^3/uL (0.0-0.7); Absolute Lymphocyte Count 0.73 10^3/uL (1.2-3.4); Absolute Monocyte Count 0.31 10^3/uL (0.1-0.8); Absolute Neutrophil Count 2.47 10^3/uL (1.2-6.7); Basophils % 0.6 %; Eosinophils % 0.3 %; HCT 46.7 % (40.0-50.0); HGB 16.4 g/dL (13.5-17.5); Immature Grans % 0.3 %; Lymphocytes % 20.6 %; MCH 31.2 pg (27.0-33.0); MCHC 35.1 % (32.0-36.0); MCV 89 fL (80-95); MPV 10.5 fL (8.0-11.0); Monocytes % 8.7 %; Neutrophils % 69.5 %; Platelet Count 215 10^3/uL (130-400); RBC 5.25 10^6/uL (4.36-5.78); RDW 11.7 % (11.8-14.1); RDW-SD 38.3 fL; WBC 3.55 10^3/uL (4.4-10.8)
[2023-10-26 17:45] LABS: ALT 86 U/L (16-63); AST 61 U/L (15-37); Albumin 4.3 g/dL (3.4-5.0); Alkaline Phosphatase 133 U/L (46-116); Anion Gap 11.2 mmol/L (3-11); BUN 9 mg/dL (7-18); Bilirubin, Total 1.07 mg/dL (0.2-1.0); CO2 27.8 mmol/L (21.0-32.0); Calcium 9.4 mg/dL (8.5-10.1); Chloride 98 mmol/L (98-107); Estimated GFR 105.79 (mL/min/1.73m2); Glucose 98 mg/dL (74-106); Potassium 4.2 mmol/L (3.5-5.1); Sodium 137 mmol/L (136-145); Total Protein 8.5 g/dL (6.4-8.2)
[2023-10-30 00:18] LABS: Anaplasma phagocytophilum Negative (Negative); B. miyamotoi PCR Negative (Negative); Babesia divergens/MO-1 Negative (Negative); Babesia duncani Negative (Negative); Babesia microti Negative (Negative); Ehrlichia chaffeensis Negative (Negative); Ehrlichia ewingii/canis Negative (Negative); Ehrlichia muris eauclairensis Negative (Negative)
[2023-11-02 13:28] LABS: Lyme Ab w Rflx to Lyme Confirm Negative (Negative)
== END 2023-10-26 17:49 | disposition home or self-care (01) ==
LOC: LBN 17:48
PROVIDERS: Visit Provider Nurse Practitioner Family
DX: R50.9 Fever, unspecified (principal); T14.8XXA Other injury of unspecified body region, initial encounter; W57.XXXA Bitten or stung by nonvenomous insect and other nonvenomous arthropods, initial encounter
CPT/HCPCS: 80053; 87798; 85025; 86618

== ENCOUNTER 2023-10-27 05:47 | Emergency (ER) | payer MEDICAID, SELFPAY ==
[2023-10-27 05:55] VITALS: BP 142/95; PULSE 117; RESP 18; TEMP 36.6; O2SAT 97
--- NOTE | 2023-10-27 06:03 | ED.GENADUL_ITS ---
Discharge Plan Discharge Details Chief Complaint: Nausea/Vomit/Diar Clinical Impression: Abdominal pain, Vomiting Primary Care Provider: Unknown,Unknown ED Provider: Reg Soria and Jack Rx's Prescriptions: No Action doxycycline hyclate 100 mg tablet 100 mg PO BID [facility] General Mode of arrival: ambulatory . Date/Time Provider Initiated Documentation: 10/27/23 06:03 . Limitations to Documentation: no limitations . Information obtained by: patient . HPI Narrative: Patient presents to ED with persistent nausea and vomiting. Patient had been camping last week. Significant other has developed bull's-eye lesion consistent with Lyme. He also has had fever, joint pain, headache, nausea and some vomiting. He was seen at urgent care last night with laboratory studies drawn and sent. He was started on doxycycline. He has had persistent vomiting and unable to keep anything down overnight. Has some abdominal pain but cannot tell whether it is related to vomiting or not. He is otherwise healthy. Related Data Home Medications Medication Instructions Recorded Confirmed doxycycline hyclate 100 mg tablet 100 mg PO BID 10/27/23 10/27/23 Allergies Allergy/AdvReac Type Severity Reaction Status Date / Time iodine Allergy Severe Anaphylaxsi Unverified 10/27/23 05:58 s shellfish derived Allergy Severe Anaphylaxsi Unverified 10/27/23 05:58 s Penicillins Allergy Mild mild rash, Unverified 10/27/23 05:58 no anaphylaxis General Stated Complaint: Nausea/Vomit/Diar JILL: 3 Review of Systems Narrative: Per HPI Exam Narrative Exam Narrative: Const: WDWN male in NAD. VS per triage. HEENT: NC/AT. Normal facial exam. Neck: Supple. Trachea midline. Lungs: Normal respiratory effort. Lungs are clear. Cor: RRR without murmur. Good radial pulses. GI: Soft/ND/NT. Neuro: A+O x 3. Normal speech, mentation, gait. Cranial nerves II - XII grossly intact. No gross motor or sensory deficit. Ext: No C/C/E. No obvious joint effusions, normal range of motion noted. Course Vital Signs Vital signs: Vital Signs Temperature 97.8 F 10/27/23 05:55 Pulse 117 H 10/27/23 05:55 Respiratory Rate 18 10/27/23 05:55 Blood Pressure 142/95 H 10/27/23 05:55 Pulse Oximetry 97 10/27/23 05:55 Temperature 97.8 F 10/27/23 05:55 Temperature Source Temporal Artery Scan 10/27/23 05:55 Pulse 117 H 10/27/23 05:55 Respiratory Rate 18 10/27/23 05:55 Respiratory Effort Normal, Non-Labored 10/27/23 06:00 Blood Pressure 142/95 H 10/27/23 05:55 Blood Pressure Position Sitting 10/27/23 05:55 Pulse Oximetry 97 10/27/23 05:55 Oxygen Delivery Method Room Air 10/27/23 05:55 Oxygen Flow Rate 0 10/27/23 05:55 Medical Decision Making Patient presenting to ED with chief complaint of nausea and vomiting, unable to keep anything down. Was started on doxycycline due to possible Lyme disease. Labs from last night are available for review. White count is mildly low. Platelets were normal. Liver function was just slightly elevated. He does not recall being bitten by a tick. He does complain of headache and joint pain. He has no rash. He has tickborne panel is pending. His abdomen is benign. He is tachycardic. Will place IV and repeat labs, give fluids, ondansetron, ketorolac and reevaluate. Patient's white count is now normal. Platelets remain normal. Liver function still somewhat elevated but is not markedly different than last night. Lipase is normal. Chemistries unremarkable. Given the abdominal pain and vomiting with elevated liver function will obtain right upper quadrant ultrasound to rule out gallbladder disease. Abdominal pain and vomiting is not typically the presenting signs of Lyme. Patient be signed out to oncoming ED physician pending ultrasound results. Medical Records Medical records reviewed: Yes I reviewed the patient's medical records. Medical records narrative: CBC and CMP done last evening from urgent care Lab Data Lab results reviewed: Yes I reviewed the patient's lab results. PFSH All Active Problems Vomiting (Acute) Abdominal pain (Acute) Loose body in knee, left knee (Acute) Tear of lateral meniscus of left knee (Acute) Left ACL tear (Acute ~06/2020) s/p left knee arthroscopy with ACL reconstruction - quad allograft DOS: 06/06/2021 Medical History GERD (gastroesophageal reflux disease) Surgical History Hx of wisdom tooth extraction Family History (Updated 06/06/21 @ 09:40 by Mine Anthony RN) Mother Multiple sclerosis Social History Smoking/Tobacco Use Status: Former Tobacco Use Quit Date: 04/20/20 Smoking risk assessment performed?: Yes Alcohol Intake: current Alcohol Intake frequency: a few times a week Alcohol type: beer, wine and hard liquor Drug use: Daily Substance use type: marijuana Details: las alcohol and marijuana use 4 days ago Current gender identity: male Do you feel safe at home: Yes Do you feel safe in your relationship?: Yes PAWSS Have you Been Recently Intoxicated or Drunk Within the Last 30 days?: No Have you Ever Experienced Previous Episodes of Alcohol Withdrawal?: No Have you ever Experienced Withdrawal Seizures?: No Have you ever Experienced Delirium Tremens(DT)s?: No Have you ever undergone Alcohol Rehabilitation Treatment (i.e, inpt ot outpatient treatment programs)?: No Have you ever Experienced Blackouts?: No Have you ever Combined Alcohol with other Downers within the last 90 days?: No Have you ever Combined Alcohol with any other Substance of Abuse during the last 90 days?: No Positive Blood Alcohol level on Presentation? [PCS.BAL]: No Evidence of Increased Autonomic Activity (i.e. HR>120, tremor, sweating, agitation, nausea)?: No Result: 0
[2023-10-27] MEDS: Ondansetron 4 MG/2 ML VIAL IVP (06:30)
[2023-10-27] MEDS: Lactated Ringers 2,000 ML 1000 ML IV (06:30)
[2023-10-27] MEDS: Ketorolac 30 MG/ML VIAL IVP (06:30)
[2023-10-27 06:32] LABS: Abs Immature Grans 0.02 10^3/uL (0.0-0.06); Absolute Basophil Count 0.02 10^3/uL (0.0-0.2); Absolute Lymphocyte Count 0.59 10^3/uL (1.2-3.4); Absolute Monocyte Count 0.42 10^3/uL (0.1-0.8); Absolute Neutrophil Count 5.28 10^3/uL (1.2-6.7); Basophils % 0.3 %; HCT 41.7 % (40.0-50.0); HGB 14.7 g/dL (13.5-17.5); Immature Grans % 0.3 %; Lymphocytes % 9.3 %; MCH 30.9 pg (27.0-33.0); MCHC 35.3 % (32.0-36.0); MCV 88 fL (80-95); MPV 9.1 fL (8.0-11.0); Monocytes % 6.6 %; Neutrophils % 83.5 %; Platelet Count 189 10^3/uL (130-400); RBC 4.75 10^6/uL (4.36-5.78); RDW 11.5 % (11.8-14.1); WBC 6.33 10^3/uL (4.4-10.8)
[2023-10-27 06:52] LABS: ALT 98 U/L (16-63); AST 58 U/L (15-37); Albumin 3.7 g/dL (3.4-5.0); Alkaline Phosphatase 149 U/L (46-116); BUN 8 mg/dL (7-18); Bilirubin, Total 1.11 mg/dL (0.2-1.0); CREATININE 1.1 mg/dL (0.70-1.30); Calcium 8.7 mg/dL (8.5-10.1); Chloride 98 mmol/L (98-107); Estimated GFR 94.36 (mL/min/1.73m2); Glucose 125 mg/dL (74-106); Lipase 24 U/L (16-77); Potassium 3.7 mmol/L (3.5-5.1); Sodium 134 mmol/L (136-145)
--- NOTE | 2023-10-27 07:00 | DI.US_ITS ---
Exam(s) US ABDOMEN LIMITED EXAM: US ABDOMEN LIMITED CLINICAL HISTORY: abd pain, vomiting, elevated LFTs TECHNIQUE: Ultrasound abdomen performed using standard protocol. COMPARISON: No exams were available for comparison FINDINGS: LIVER: Normal size. Normalechogenicity. No focal liver lesions are seen.. GALLBLADDER: No evidence of cholelithiasis. No evidence of wall thickening. No pericholecystic fluid identified. VSAQUEZ'S SIGN: Negative. BILIARY SYSTEM: No intrahepatic or extrahepatic biliary ductal dilation. RIGHT KIDNEY: Normal size. No evidence of renal calculi. No evidence of hydronephrosis. No suspicious renal mass. No cyst identified. PANCREAS: Normal where visualized. ABDOMINAL AORTA AND IVC: Visualized portions normal caliber. ASCITES: None seen. IMPRESSION: Normal sonographic appearance of the right upper quadrant. DATA REPOSITORY:
--- NOTE | 2023-10-27 09:58 | W.EDPROG ---
Date of service: 10/27/23 Time of Service: 09:58 Medical Decision Making Resting comfortably no acute distress feeling better after fluids and rest. Patient taking doxycycline as prescribed as an outpatient, will provide Zofran for home. No vomiting here in department ultrasound unremarkable. Home care instructions and return precautions given Quality:[facility] Health Related Social Needs: No Data to Display Sign Out Sign Out Data: Sign Out Comment: Pending right upper quadrant ultrasound for abdominal pain, vomiting, elevated liver function. Last updated by Reg Soria MD at 10/27/23 07:32 Discharge Plan Disposition Patient Disposition: Home Condition: Improving Discharge Details Chief Complaint: Nausea/Vomit/Diar Clinical Impression: Abdominal pain, Vomiting Primary Care Provider: Unknown,Unknown ED Provider: Yvon Hammer Home Meds and New Rx's Prescriptions: No Action doxycycline hyclate 100 mg tablet 100 mg PO BID Discharge Instructions Instructions: Nausea and Vomiting, Adult ED Additional Instructions: Please follow-up with primary care physician. Return to the emerged part for any worsening symptoms
[2023-10-27] MEDS: Ondansetron O.D.T. 4 MG TABEF, 3 TABS/BTL PO (10:08)
[2023-10-27 10:09] VITALS: BP 132/86; PULSE 87; RESP 16; TEMP 36.9; O2SAT 100
== END 2023-10-27 10:09 | disposition home or self-care (01) ==
PROVIDERS: Emergency Medicine; Emergency Provider Emergency Medicine
DX: R11.2 Nausea with vomiting, unspecified (principal); R19.7 Diarrhea, unspecified
CPT/HCPCS: 00123; 36415; 80053; 83690; 96374; 96375; 99284; 76705; 85025; J1885; J2405